=== PATIENT | male | born 1990 ===

== ENCOUNTER 2016-11-20 17:19 | Inpatient (IN) | payer BC ==
[~2016-11-20] VITALS: Ht 190.5 cm; Wt 140.2 kg
--- NOTE | ~2016-11-20 | ECHO ---
Transthoracic Echocardiography Report (TTE) Demographics Patient Name CANDI EVANS Date of Study 11/21/2016 TERRENCE Patient Number [id number] Visit Number [id number] Date of 1990 Room Number G6323 Gender Male Number Age 26 year(s) Referring Amarilys Jennings MD Informatics Coordinator David Hinson Physician Mary Soto Physician Interpreting Colin Gonzalez Electrical Design Engineer Physician Supervising Ordering Ct Soto APRN, MD/MLP Physician Nurse Stress Brass Cleaner Conclusions Contractility Score Summary Normal Left Ventricular contractility was noted. Summary Technically difficult study with suboptimal images The estimated left ventricular ejection fraction is 55-60%. No significant valvular abnormalities were seen. Procedure Type of Study TTE procedure:2D Echocardiogram, M-Mode, Doppler , Color Doppler. Procedure Date Date: 11/21/2016 Start: 09:30 AM Study Location: Inpatient Portable Technical Quality: Good visualization Indications:Ventricular Tachycardia. Appropriate Use Criteria: 9 Patient Status: Routine HR: 53 bpm BP: 119/81 mmHg M-Mode/2D Measurements LV Diastolic Dimension: 5.72 cm LV Systolic Dimension: 3.73 cm LV Septum Diastolic: 1 cm LV PW Diastolic: 0.99 cm AO Root Dimension: 2.5 cm Cardiac Output: 3.91 l/min LA Dimension: 3.2 cm EF Estimated: 60 % LVOT: 2.1 cm LVOT VTI: 21.3 cm RV Base: 3.19 cm LV Stroke volume: 73.74 ml RV Length: 7.93 cm TAPSE: 1.9 cm TDI-S': 10.9 cm/s Doppler Measurements AV Peak Velocity: 1.06 m/s MV Peak E-Wave: 0.81 m/s AV Peak Gradient: 4.49 mmHg MV Peak A-Wave: 0.41 m/s AV Mean Gradient: 3 mmHg MV E/A Ratio: 1.99 LVOT Peak Velocity: 0.9 m/s MV P1/2t: 48 msec TR Gradient:16 mmHg PV Peak Velocity: 0.92 m/s Estimated RAP:5 mmHg PV Peak Gradient: 3.36 mmHg Estimated RVSP: 21 mmHg Estimated PASP: 21 mmHg E' Septal Velocity: 0.1 m/s A' Septal Velocity: 0.06 m/s E' Lateral Velocity: 0.2 m/s A' Lateral Velocity: 0.06 m/s Findings Left Ventricle The left ventricle is normal in size . Diastolic assessment reveals normal relaxation. Right Ventricle Normal right ventricle structure and function. Left Atrium Normal left atrial size. Right Atrium IVC was not well visualized Mitral Valve Normal mitral valve structure and function. Aortic Valve Normal aortic valve structure and function. Tricuspid Valve Trivial tricuspid regurgitation by color Doppler. Pulmonic Valve Normal pulmonic valve structure and function. Pericardial Effusion No evidence of pericardial effusion. Miscellaneous Visualized portions of the aortic root and ascending aorta appear normal in size. Pleural Effusion No evidence of pleural effusion. Contractility Score LV regional wall motion:(0-Non visualized 1-Normal 2-Hypokinesis 3-Akinesis 4-Dyskinesis 5-Aneurysm) Signature dtt: NÉSTOR RIVERO dtd: 11/21/16 0930 Physician Self Edit
--- NOTE | ~2016-11-20 | HP ---
PATIENT'S NAME: CANDI EVANS [facility] AGE: 26 Y [address] ROOM: [place] [id number] LOCATION: GPCU ADMIT DATE: 11/20/2016 History & Physical DISCHARGE DATE: FAMILY PHYSICIAN: ELEN MYRICK MD ATTENDING PHYSICIAN: KEVIN PLUMMER V DATE OF SERVICE: CHIEF COMPLAINT: Palpitations. HISTORY OF PRESENT ILLNESS: The patient is a healthy 26-year-old male. He experienced approximately 10- minute episode of palpitations earlier in the day. This resolved spontaneously and subsequently later in the day he had another brief episode. These episodes were associated with chest tightness. He presented to the ER where initial workup was entirely unremarkable. However, later on in the course of his ER stay, he experienced another such episode and indeed was seen to have approximately a 30- to 40-second episode of cardiac monitoring which contained a 10-beat run of wide-complex tachycardia around 100 as well as multiple episodes of couplets and triplets. His first set of cardiac enzymes was only significant for a CPK slightly above 400. The patient has been discussed with Cardiology by the ER provider and hospitalist admission was requested. repatcher also suggested starting him on 12.5 mg of metoprolol. REVIEW OF SYSTEMS: Negative for any recent shortness of breath, chest pain, nausea, vomiting, diaphoresis, or syncope. All systems have been reviewed and are negative aside from pertinent positives mentioned above. PAST MEDICAL HISTORY: Significant for myringotomy tubes. SOCIAL HISTORY: Negative for any toxic habits and the patient is an infrequent user of caffeine. FAMILY HISTORY: A detailed family history was performed and significant for cancer and coronary artery disease in his grandmother in her 60s. CURRENT MEDICATIONS: PATIENT'S NAME: CANDI EVANS [facility] AGE: 26 Y [address] ROOM: [address] [address] LOCATION: GPCU ADMIT DATE: 11/20/2016 History & Physical DISCHARGE DATE: FAMILY PHYSICIAN: ELEN MYRICK MD ATTENDING PHYSICIAN: KEVIN PLUMMER V None. PHYSICAL EXAMINATION: VITAL SIGNS: Blood pressure 160/100, heart rate is in 50s to 60s and slightly irregular, saturating 97% on room air. GENERAL: Appears as a well-developed, well-nourished, young male, in no acute distress. NEUROLOGICAL: Nonfocal. HEENT: Eye exam shows pupils are equal and reactive to light. LYMPHATIC: No cervical lymphadenopathy. ENDOCRINE: No thyromegaly. LUNGS: Clear to auscultation in all fitzgerald. HEART: Rate is slightly irregular and at times bradycardic with no appreciable murmurs, gallops, or rubs. GI: Abdomen is soft, nontender, nondistended. : No costovertebral angle tenderness. VASCULAR: Reveals 2+ pedal pulses. MUSCULOSKELETAL: Unremarkable. SKIN: Warm and dry. PSYCHIATRIC: Appropriate mood, cognition, and affect. DIAGNOSTIC DATA: Studies done in the ER significant for several EKGs showing heart rate sinus arrhythmia, possibly even a wandering atrial pacemaker in 50s to 60s. There is QRS prolongation of 127 milliseconds. LABORATORY DATA: Lab results performed in the ER are remarkable for potassium of 4.0. Magnesium of 2.2. CPK of 417, remainder of cardiac enzymes negative. Negative D-dimer. Normal TSH. Negative urine tox. ASSESSMENT AND PLAN: This is a 26-year-old male who will be admitted with nonsustained ventricular tachycardia. The patient will be placed on telemetry. We will put him on metoprolol 12.5 mg b.i.d. as recommended by Cardiology. We will obtain a 2- dimensional echocardiogram in the morning and follow up Cardiology recommendations. Additional management will depend on clinical course. Time dedicated to this patient's encounter is 25 minutes. KEVIN PLUMMER MD PATIENT'S NAME: CANDI EVANS [facility] AGE: 26 Y [address] ROOM: [place] [address] [facility] AD[facility] DATE: 11/20/2016 History & Physical DISCHARGE DATE: FAMILY PHYSICIAN: ELEN MYRICK MD ATTENDING PHYSICIAN: KEVIN PLUMMER/suman /[id number] D: [id number] HISTORY & PHYSICAL
--- NOTE | ~2016-11-20 | PUL ---
PATIENT'S NAME: CANDI EVANS [facility] AGE: 26 Y [address] ROOM: [address] [address] LOCATION: GPCU ADMIT DATE: 11/20/2016 Pulmonary DISCHARGE DATE: 11/22/2016 FAMILY PHYSICIAN: Cordell Panda MD ATTENDING PHYSICIAN: Fernando Hernandez V NAME OF PROCEDURE: Overnight Pulse Oximetry DATE OF PROCEDURE: November 22 to November 23, 2016 REASON FOR EXAM: Nocturnal hypoxemia RESULTS: The test was performed on room air. The recording time and total valid sampling time were 7 hours, 28 minutes and 20 seconds. The highest pulse was 82, lowest pulse was 35, with a mean pulse of 47. The highest SpO2 was 100%, lowest SpO2 was 89%, with a mean SpO2 of 95.1%. The patient spent no time with SpO2 less than 89%. The desaturation event index was 3.5. PHYSICIAN INTERPRETATION: The patient does not have evidence of nocturnal hypoxia and would not qualify for supplemental oxygen as per Medicare criteria. MD SIXTO NAVARRO/stu /[id number] dtt: 11/23/16 1202 ALEXANDRA RADU F dtd: 11/23/16 1111
--- NOTE | ~2016-11-20 | DS ---
PATIENT'S NAME: CANDI EVANS [facility] AGE: 26 Y [address] ROOM: [place] [address] LOCATION: GPCU ADMIT DATE: 11/20/2016 Discharge Summary DISCHARGE DATE: 11/22/2016 FAMILY PHYSICIAN: Cordell Panda MD ATTENDING PHYSICIAN: Fernando Hernandez V PRIMARY DIAGNOSES: 1. Nonsustained ventricular tachycardia. 2. Palpitations. 3. Anxiety, generalized. 4. Morbid obesity. OPERATIONS AND PROCEDURES: Echocardiogram was performed on 11/21/[address] Shaw. HISTORY OF PRESENTING ILLNESS AND REASON FOR ADMISSION: Please refer to the original H and P dictated on 11/20/[address] Hernandez. HOSPITAL COURSE: The patient was admitted to the hospital as noted above with a presumptive diagnosis of palpitations. He was noted to have nonsustained ventricular tachycardia on telemetry. Cardiology was consulted. He was initially placed on beta frances therapy, but this was subsequently switched to verapamil. He was continued to be monitored on telemetry. He had some very minimal episodes of bradycardia, but was asymptomatic with that. Cardiology performed echocardiography as described above and the results were unremarkable. It was recommended that he have outpatient Electrophysiology evaluation and this was still being contemplated at the point of discharge. By the end of the second day of his hospital stay, it was felt he be stable enough for discharge to home with plans for close clinical followup with Cardiology, his primary care provider, as well as eventual followup with Electrophysiology. DISCHARGE INSTRUCTIONS: Diet: Regular as tolerated. Activity: As tolerated. MEDICATIONS: 1. Verapamil ER 120 mg p.o. daily. 2. Aspirin 81 mg p.o. daily. FOLLOWUP: He will follow up with his visitor services information assistant in 5-7 days. He will follow up with [facility] Cardiology in 2 weeks. He will follow up with the solo musician in [place] at the next available appointment. CONDITION ON DISCHARGE: Fair. PATIENT'S NAME: CANDI EVANS [facility] AGE: 26 Y [address] ROOM: [place] [address] LOCATION: GPCU ADMIT DATE: 11/20/2016 Discharge Summary DISCHARGE DATE: 11/22/2016 FAMILY PHYSICIAN: Cordell Panda MD ATTENDING PHYSICIAN: Fernando Hernandez V Total time spent on discharge process 35 minutes. ALFA J MD PADMA CALDERON/modl /[id number] d: 11/23/168 t: 12/05/16 2144, DISCHARGE SUMMARY
--- NOTE | ~2016-11-20 | ER ---
PATIENT'S NAME: CANDI EVANS [facility] AGE: 26 Y [address] ROOM: [place] [address] LOCATION: GPCU ADMIT DATE: 11/20/2016 ER/Outpatient Report DISCHARGE DATE: FAMILY PHYSICIAN: ELEN PANDA MD ATTENDING PHYSICIAN: KEVIN PLUMMER V Time of Arrival 1719 hours. Time Seen: 1725 hours. IDENTIFICATION: A 26-year-old male. CHIEF COMPLAINT: Chest tightness. HISTORY OF PRESENT ILLNESS: Approximately at 1300, the patient had some chest discomfort, tachycardia, and his heart felt irregular, lasted about 10 minutes that resolved about 1500 hours. Return for approximately 10 seconds. The patient himself has no history of hypertension, diabetes. He does not smoke. No family history of premature coronary artery disease. He has a grandmother who had heart disease with an [place] at age 68. Denies any other associated symptoms. He is not a caffeine intake person. Although today, he did have one cup of coffee which is unusual for him. No history of thyroid disease. He is a patient of Dr. Panda. PAST MEDICAL HISTORY: ALLERGIES: NO KNOWN DRUG ALLERGIES. CURRENT MEDICATIONS: No current medications. MEDICAL PROBLEMS: No medical problems. No prior hospitalizations. SURGERIES: He has had prior tubes in his ears when he was younger. SOCIAL HISTORY: Tobacco use, denies. Alcohol use, occasional, on weekends. Socially drug use, denies. REVIEW OF SYSTEMS: PATIENT'S NAME: CANDI EVANS [facility] AGE: 26 Y [address] ROOM: [place] [address] LOCATION: GPCU ADMIT DATE: 11/20/2016 ER/Outpatient Report DISCHARGE DATE: FAMILY PHYSICIAN: ELEN PANDA MD ATTENDING PHYSICIAN: KEVIN PLUMMER V All systems reviewed and negative other than what is noted in the HPI. FAMILY HISTORY: Grandmother with heart disease at age 68, had an [place]. SOCIAL HISTORY: The patient lives here in [place]. He works doing [employer] work. PHYSICAL EXAMINATION: VITAL SIGNS: Height 6 feet 2 inches, weight 140 kg, blood pressure 161/102, pulse 72, respirations 16, saturations 97%. GENERAL: Pleasant 26-year-old male in no acute distress. HEENT: Unremarkable. LUNGS: Clear to auscultation. HEART: Regular rate and rhythm. ABDOMEN: Soft nondistended, nontender. SKIN: [place], warm, and dry. The patient as he has been here, has no pain. He has had no pain since 3 o'clock today. He just came in because he was worried he might have had a heart attack. NEUROLOGIC: No focal deficit. EXTREMITIES: No lower extremity edema. IMAGING: Two-view chest x-ray, mild cardiomegaly. No acute infiltrate. Pending Radiology over-read. Initial EKG done at 1745 hours, sinus bradycardia of 55 beats per minute. No acute ST elevation or depression. No prior EKG available for comparison. Repeat EKG at 1848 hours, sinus rhythm. No acute ST elevation or depression. Rate 74 beats per minute. No significant change when compared to earlier EKG. D-dimer normal less than 0.19. Cardiac enzymes negative x1. TSH normal 1.740. Hemoglobin 16, hematocrit 47.3, platelets 283, white count 5.9 with a normal differential. INR 1.0. Sodium 140, potassium 4.0, chloride 105, CO2 28, BUN 12, creatinine 1.0, blood sugar 94. Liver enzymes normal. Magnesium 2.2, amylase was 33, lipase 172. Urine drug screen pending. UA pending. While patient was here, he had several runs of ventricular tachycardia in couplets, triplets, and then he had about an 8-beat run followed by a couplets and triplets. During this time, he had some chest pressure and felt some palpitations in his heart. as soon as it resolved, he fell back to normal and that pressure resolved. IMPRESSION: Ventricular tachycardia. PLAN: PATIENT'S NAME: CANDI EVANS [facility] AGE: 26 Y [address] ROOM: [place] [address] LOCATION: GPCU ADMIT DATE: 11/20/2016 ER/Outpatient Report DISCHARGE DATE: FAMILY PHYSICIAN: ELEN PANDA MD ATTENDING PHYSICIAN: KEVIN PLUMMER V 1. Discussed with Dr. Mccarty, sports internship. Metoprolol 12.5 mg b.i.d. is what she recommended. First dose now. Echo in the morning. Make sure the strips go up to the floor with him. Urine and urine drug screen were ordered and Dr. Plummer will provide admission. Dr. Plummer evaluated the patient in the emergency room. 2. Mild hypertension. Blood pressure initially on arrival was elevated at 161/102. Repeat blood pressures were 140s over 90s; however then with this episode, his blood pressure again went back up to 160s over 100s. Metoprolol as noted above and plan for continued observation. MD POPEYE MCGOVERN/suman /[id number] d: 11/21/16 0056 t: 11/27/16 1423, OUTPATIENT REPORT
--- NOTE | ~2016-11-20 | CON ---
PATIENT'S NAME: CANDI EVANS [facility] AGE: 26 Y [address] ROOM: [place] [address] LOCATION: GPCU ADMIT DATE: 11/20/2016 Consultation DISCHARGE DATE: FAMILY PHYSICIAN: ELEN MYRICK MD ATTENDING PHYSICIAN: KEVIN PLUMMER V DATE OF CONSULTATION: 11/21/2016 REFERRING PHYSICIAN: LIYA HERNANDEZ MD CARDIOLOGY CONSULTATION REASON FOR CARDIOLOGY CONSULTATION: Palpitations with wide-complex tachycardia. HISTORY OF PRESENT ILLNESS: This is a 26-year-old male, who had complaints of palpitations in a nonexertional state while at work. He did state that the palpitations caused chest pressure and squeezing around his "aorta." He presented to the emergency department, where while on telemetry he had another round of palpitations which showed a wide-complex ventricular tachycardia. He denies nausea, vomiting, or diarrhea. He also denies diaphoresis or presyncope or syncopal feelings. He does admit to having a respiratory infection about 1 month ago, but overall has no other noted prior medical history. PAST MEDICAL HISTORY: 1. History of tubes in his ears as a child. 2. History of skin grafting to his eardrum. FAMILY HISTORY: The patient's mother had a history of hemorrhagic stroke after a brain tumor removal. He also has a grandmother with a history of coronary artery disease in her 60s as well as cancer. SOCIAL HISTORY: The patient has a history of marijuana use in the past, but denies currently using. He also denies alcohol or illicit drug use as well as denies tobacco use. CURRENT MEDICATIONS: 1. Lopressor 12.5 mg p.o. twice daily. 2. Aspirin 81 mg p.o. daily. MEDICATION ALLERGIES: No known medication allergies. PATIENT'S NAME: CANDI EVANS [facility] AGE: 26 Y [address] ROOM: [address] [address] LOCATION: GPCU ADMIT DATE: 11/20/2016 Consultation DISCHARGE DATE: FAMILY PHYSICIAN: ELEN MYRICK MD ATTENDING PHYSICIAN: KEVIN PLUMMER V REVIEW OF SYSTEMS: Pertinent positive review of systems are listed in the HPI. All other review of systems evaluated and negative. LABORATORY DATA AND IMAGING STUDIES: Diagnostics: CMS evaluation shows a sodium of 140, potassium 4.0, BUN of 12, creatinine 1.0, glucose of 94, and a magnesium of 2.2. Cardiac enzymes show a CPK of 417, CK-MB of 1.1, and troponin I of less than 0.04 x3 values. He has a TSH of 1.74, and a D-dimer of less than 0.19. PHYSICAL EXAMINATION: VITAL SIGNS: Temperature 97.9, pulse 58, respirations 14, blood pressure 127/76, and O2 saturation 95% on room air. The patient weighs 140.2 kg. SKIN: [place], warm, and dry. EYES: Sclerae clear. No xanthelasmas. ENT: Oral mucosa is pink and moist. No jugular venous distention. No carotid bruits. CHEST: Respirations are even and unlabored. LUNGS: Clear to auscultation. HEART: Regular rate and rhythm. Normal S1 and S2. No murmurs, rubs, or gallops. ABDOMEN: Soft and nontender. MUSCULOSKELETAL: Gait is normal. EXTREMITIES: Peripheral pulses palpable. No clubbing, cyanosis, or edema. PSYCHIATRIC: Alert and oriented. Mood and affect are appropriate. IMPRESSION AND PLAN: Per Dr. Rivero: 1. Palpitations. 2. Wide-complex ventricular tachycardia. 3. Possible right ventricular outflow tract - ventricular tachycardia. 4. Obesity. We will check an echocardiogram to fully evaluate his ejection fraction as well as look for wall motion or valvular abnormalities. Also evaluate his right ventricular size and function with his echocardiogram. His EKG shows a non sustained ventricular tachycardia of about 4 beats and during that time, he has an inferior axis with left bundle-branch block pattern. We will discontinue his metoprolol and start him on verapamil 40 mg p.o. 3 times daily. We will continue to monitor, evaluate, and treat as appropriate. Obtain EP evaluation as an outpatient Thank you for this consult. Thank you for allowing [facility] to interact in the care of this patient. PATIENT'S NAME: CANDI EVANS [facility] AGE: 26 Y [address] ROOM: [address] [address] [facility] ADMIT DATE: 11/20/2016 Consultation DISCHARGE DATE: FAMILY PHYSICIAN: ELEN MYRICK MD ATTENDING PHYSICIAN: KEVIN PLUMMER V SANIYA VINES APRN FOR NÉSTOR RIVERO MD DEH/modl /[id number] d: 11/21/16 1629 t: 12/03/16 1408, CONSULTATION REPORT
[2016-11-20 17:52] LABS: BASOPHIL % 0.3 %; EOSINOPHIL # 0.1 K/uL (0.0-0.5); EOSINOPHIL % 1.2 %; HEMATOCRIT 47.3 % (37.0-53.0); IMMATURE GRANULOCYTE # 0.1 K/uL (0.0-0.3); IMMATURE GRANULOCYTE % 1.5 %; LYMPHOCYTE # 1.9 K/uL (0.8-4.0); LYMPHOCYTE % 32.1 %; MCH 31.5 pg (27.0-34.0); MCHC 33.8 gm/dL (32.0-36.5); MCV 93.1 fl (83.0-98.0); MONOCYTE # 0.4 K/uL (0.0-1.0); MONOCYTE % 6.9 %; MPV 9.6 fl (9.4-12.4); NEUTROPHIL # (ANC) 3.4 K/uL (1.4-9.0); NRBC % 0 /100WBC (0-0.00); PLATELET COUNT 283 K/uL (150-450); RBC 5.08 M/uL (4.00-6.00); WBC 5.9 K/uL (4.0-11.0)
[2016-11-20 18:00] LABS: PROTIME 10.4 SECONDS (9.6-11.1); PTT 28 SECONDS (25-32)
[2016-11-20 18:10] LABS: ALBUMIN 3.8 gm/dL (3.5-5.0); ALK PHOS 62 IU/L (33-138); ALT 44 IU/L (12-78); AST 26 IU/L (10-40); BLOOD UREA NITROGEN 12 mg/dL (6-24); CALCIUM 8.1 mg/dL (8.5-10.5); CHLORIDE 105 mMol/L (96-110); CO2 28 mMol/L (22-32); CPK 417 IU/L (35-332); ESTIMATED GFR (MDRD EQUATION) > 60; MAGNESIUM 2.2 mg/dL (1.3-2.6); SODIUM 140 mMol/L (135-145); TOTAL BILIRUBIN 0.8 mg/dL (0.0-1.5); TOTAL PROTEIN 7.6 g/dL (6.0-8.4)
[2016-11-20 19:16] LABS: BILIRUBIN URINE NEGATIVE (NEGATIVE); BLOOD URINE NEGATIVE /UL (NEGATIVE); GLUCOSE URINE NEGATIVE (NEGATIVE); KETONE URINE NEGATIVE (NEGATIVE); LEUKOCYTES URINE NEGATIVE /UL (NEGATIVE); NITRITE URINE NEGATIVE (NEGATIVE); PROTEIN URINE NEGATIVE (NEGATIVE); SPEC GRAVITY URINE 1.005 (1.003-1.035); UROBILINOGEN URINE NORMAL (NORMAL)
[2016-11-20 19:17] LABS: COLOR URINE STRAW (YELLOW); TURBIDITY URINE CLEAR (CLEAR)
[2016-11-20 19:29] LABS: COCAINE NEGATIVE (NEGATIVE); OPIATES NEGATIVE (NEGATIVE)
[2016-11-20 19:35] LABS: AMPHETAMINE NEGATIVE (NEGATIVE); BARBITURATE NEGATIVE (NEGATIVE)
[2016-11-20 20:14] LABS: CPK 394 IU/L (35-332)
--- NOTE | 2016-11-20 21:58 | NUR ---
The patient began to have chest discomfort earlier in the day. At this time he noticed his heart was beating at an irregular rate. He waited till he was finished with work and then went to the ER. At first ER thought it was all anxiety but then in ER he had a 5,10,3 beat run of v-tach. He has been asymptomatic throughout the entire ordeal. CPK slightly elevated at 417, all other enzymes negative. Arrived on PCU at 2049 and ambulated with no assist and in no distress to the bed. Denies all pain. He is 26 year old male with no significant medical history. NKA. No home medications.
[2016-11-21 01:10] LABS: CPK 360 IU/L (35-332)
--- NOTE | 2016-11-21 05:17 | NUR ---
Significant Event: A/0 X 4, UP AD SATURNINO. HR HAS BEEN YADIRA OF MID 40'S TO 90'S WITH ACTIVITY. LOPRESSOR HELD. SBP'S HAVE DECREASED FROM 150'S TO 120'S. DID HAVE ANOTHER 4 BEATS V-TACH ON FLOOR. MAG 2.2. K+4.0. HAS BEEN ASYMPTOMATIC ENTIRE EVENING WITH NO COMPLAINTS OF ANY PAIN AND NO COMPLICATIONS. CPK ONLY ENZYME ELEVATED AT HIGH OF 411, HAS BEEN DECREASING EACH LAB DRAW. MACK CONSULT WITH NASRIN TODAY. Follow up:
[2016-11-21 07:34] LABS: CPK 349 IU/L (35-332)
--- NOTE | 2016-11-21 14:47 | NUR ---
Introduced self and role of care managment to pt. Pt lives in [place] with roomate and is active with school and work. He plans on home when discharged and denies needs.
--- NOTE | 2016-11-21 16:32 | NUR ---
Significant Event: Patient A/O x 3. Independent. Vital signs stable: HR 50-70's. SBP 119-136. Started on verapamil today. Patient report that he had one episode where he had discomfort about 1230, but it was very minimal. Patient did not notify nursing of this at the time. No ectopy was noted on telemetry. Gave patient instructions that it is very important to report as the signs/symptoms are happening. L)hand PIV saline locked. Up in halls independently. No other needs throughout the day. 2D echo done this morning. Follow up: Continue as per plan of care.
[2016-11-22] MEDS ORDERED: ASPIRIN LO-DOSE81 MG PO (16:44)
[2016-11-22] MEDS ORDERED: CALAN SR GENER120 MG PO (16:44)
--- NOTE | 2016-11-22 19:54 | NUR ---
Significant Event: ASYMPTOMATIC WITH BRADYCARDIA, MOSTLY AT REST. HR 60-80 WHEN AWAKE. DISCHARGE INSTRUCTIONS DISCUSSED, VERBALIZED UNDERSTANDING. KRAMES GIVEN ON NEW MEDS. IV REMOVED. BELONGINGS WITH PT. DC TO HOME AT 1700. Follow up:
== END 2016-11-22 17:05 | disposition disaster alternative care site (69) | DRG 310 ==
LOC: GMED 17:19 → GPCU 20:08
PROVIDERS: Family Medicine; ADMIT Internal Medicine
DX: I47.2 Ventricular tachycardia (principal); E66.01 Morbid (severe) obesity due to excess calories; I44.7 Left bundle-branch block, unspecified; F41.1 Generalized anxiety disorder; Z68.38 Body mass index [BMI] 38.0-38.9, adult; Z79.82 Long term (current) use of aspirin
CPT/HCPCS: J7030